=== PATIENT | female | born 1970 ===

== ENCOUNTER → 2018-10-03 | Outpatient (CLI) | payer BC ==
[~2018-10-03] MED LIST: ACEBUTCAFT PO; DIAZ5 PO; OXYACE5T PO; RIZA PO
[2018-10-03 13:32] LABS: Source, Urine Catheter
[2018-10-03 14:02] LABS: Appearance, Urine Clear (Clear); Bilirubin, Urine Neg (Neg); Blood, Urine Neg (Neg); Color, Urine Yellow (P-Yellow); Glucose Qualitative, Urine Neg (Neg); Ketones, Urine Neg (Neg); Leukocyte Esterase, Urine Neg (Neg); Nitrite, Urine Neg (Neg); Protein, Urine Neg (Neg); Urobilinogen, Urine NORM (Normal)
[2018-10-06 15:06] LABS: HPV 16 Negative (Negative); HPV 18 Negative (Negative); HPV OTHER HR TYPES Negative (Negative)
== END | disposition home or self-care (01) ==
LOC: LAB 13:30 → LAB SHORT 13:30
PROVIDERS: Obstetrics & Gynecology Gynecology
DX: Z12.4 Encounter for screening for malignant neoplasm of cervix (principal); R30.0 Dysuria
CPT/HCPCS: 81003; 87624; G0123

== ENCOUNTER 2019-01-07 17:56 | Emergency (ER) | payer BC ==
[~2019-01-07] VITALS: Ht 162.6 cm; Wt 55.3 kg
[~2019-01-07 17:56] MED LIST changes: -RIZA PO; +RIZATRIPTAN10 MG PO
[2019-01-07] MEDS ORDERED: ZOLP10 PO (18:08)
== END 2019-01-07 18:54 | disposition home or self-care (01) ==
LOC: ER 17:56
DX: S00.83XA Contusion of other part of head, initial encounter (principal); G43.909 Migraine, unspecified, not intractable, without status migrainosus; Z79.899 Other long term (current) drug therapy; Z88.0 Allergy status to penicillin; W18.30XA Fall on same level, unspecified, initial encounter
CPT/HCPCS: 70450; 99283-25; Q0163

== ENCOUNTER → 2021-07-28 | Outpatient (CLI) | payer OTHER ==
[~2021-07-28] MED LIST changes: +ZOLP10 PO
== END | disposition home or self-care (01) ==
LOC: LAB SHORT 13:44 → PLD 13:44
DX: N85.00 Endometrial hyperplasia, unspecified (principal)
CPT/HCPCS: 88305

== ENCOUNTER → 2022-05-24 | Outpatient (CLI) | payer OTHER | END | disposition home or self-care (01) | LOC: LAB SHORT 13:04 → LAB 13:04 | DX: N85.01 Benign endometrial hyperplasia (principal) | CPT/HCPCS: 88305 ==